=== PATIENT | female | born 1990 | race African-American/Black ===

== ENCOUNTER 2016-08-02 17:21 | Emergency (ER) | payer OTHER ==
[~2016-08-02] VITALS: Ht 157.5 cm; Wt 49.9 kg
[~2016-08-02 17:21] MED LIST: ALPR0.2566 PO; CYMBALTA30 MG OR; DILAUDID2 MG PO; DOXEPIN HCL50 MG OR; DOXEPIN HCL50 MG PO; ERYTHROMYCIN250 MG PO; FENT25DI TD; GABA100C2 PO; GABA300C2 PO; HYDR2TAB12 PO; HYDR5TAB9 PO; IBUPROFEN PM OR; INSU100I2 SC; INSU100P SC; IRON325 MG PO; LANTUS100 MG/ML SC; LYRICA50 MG OR; LYRICA75 MG OR; NOVOFINE32 GX6MM; NOVOFINE32 GX6MM EX; NOVOLOG SC; OMEP20CA PO; PRILOSEC20 MG OR; PROM25SU RE; PROM25TA52 PO; PROVERA5 MG PO; RANI150T78 PO; RELION; RELION EX; TRIM800T12 PO; VIMOVO1 TA1 OR; ZOFRAN8 MG OR; ZOFRAN8 MG PO; [UNRECOGNIZED DRUG - SUPPLY]; [UNRECOGNIZED DRUG - SUPPLY] EX
[2016-08-02 18:02] LABS: PLATELET COUNT 326 K/uL (152-353)
[2016-08-02 18:13] LABS: POTASSIUM 3.6 mmol/L (3.6-5.2); SODIUM 130 mmol/L (136-145)
[2016-08-02] MEDS ORDERED: PHENERGAN25 MG PR (18:58)
[2016-08-02] MEDS ORDERED: HYDR2TAB12 PO (18:58)
[2016-08-02 19:10] VITALS: BP 1220/81; TEMP 98.3
== END 2016-08-02 19:10 | disposition home or self-care (01) ==
LOC: ED 17:21
DX: R10.84 Generalized abdominal pain (principal); R11.2 Nausea with vomiting, unspecified
CPT/HCPCS: 80048; 85027; 96374; 96375; 99284; J1170; J1642; J2550

== ENCOUNTER 2016-08-12 16:16 | Emergency (ER) | payer OTHER ==
[~2016-08-12] VITALS: Ht 154.9 cm; Wt 50.8 kg
[~2016-08-12 16:16] MED LIST changes: +PHENERGAN25 MG PR
[2016-08-12 16:49] LABS: PLATELET COUNT 338 K/uL (152-353)
[2016-08-12 16:58] LABS: POTASSIUM 3.7 mmol/L (3.6-5.2); SODIUM 134 mmol/L (136-145)
[2016-08-12 21:36] VITALS: BP 151/91; TEMP 98.1
== END 2016-08-12 21:00 | disposition home or self-care (01) ==
LOC: ED 16:16
PROVIDERS: Emergency Medicine
DX: E10.43 Type 1 diabetes mellitus with diabetic autonomic (poly)neuropathy (principal); K31.84 Gastroparesis; Z79.4 Long term (current) use of insulin; R11.2 Nausea with vomiting, unspecified; R10.84 Generalized abdominal pain
CPT/HCPCS: 36415; 80053; 85027; 96365; 96375; 99284; J1170; J1200; J2405; J2550

== ENCOUNTER 2016-08-12 21:04 | Outpatient (CLI) | payer OTHER | END 2016-08-12 22:14 | disposition short-term general hospital (02) | LOC: AMB 21:04 | DX: E10.43 Type 1 diabetes mellitus with diabetic autonomic (poly)neuropathy (principal); K31.84 Gastroparesis; Z79.4 Long term (current) use of insulin; R11.2 Nausea with vomiting, unspecified; R10.84 Generalized abdominal pain | CPT/HCPCS: A0425; A0427 ==

== ENCOUNTER 2016-10-27 13:02 | Outpatient (CLI) | payer BC, OTHER ==
[2016-10-27 13:38] LABS: PLATELET COUNT 320 K/uL (152-353)
[2016-10-27 13:43] LABS: POTASSIUM 4.2 mmol/L (3.6-5.2); SODIUM 136 mmol/L (136-145)
== END 2016-10-27 19:15 | disposition home or self-care (01) ==
LOC: LABW 13:02
PROVIDERS: Internal Medicine Endocrinology, Diabetes & Metabolism
DX: E11.65 Type 2 diabetes mellitus with hyperglycemia (principal); E78.4 Other hyperlipidemia; I10 Essential (primary) hypertension
CPT/HCPCS: 36415; 80053; 80061; 82043; 82570; 85027

== ENCOUNTER 2016-11-08 11:13 | Emergency (ER) | payer BC, OTHER ==
[~2016-11-08] VITALS: Ht 157.5 cm; Wt 52.2 kg
[2016-11-08 11:25] VITALS: TEMP 98.8
[2016-11-08 12:11] LABS: PLATELET COUNT 282 K/uL (152-353)
[2016-11-08 12:16] LABS: POTASSIUM 3.6 mmol/L (3.6-5.2); SODIUM 136 mmol/L (136-145)
[2016-11-08 13:17] VITALS: BP 143/95
== END 2016-11-08 13:18 | disposition home or self-care (01) ==
LOC: ED 11:13
DX: E11.43 Type 2 diabetes mellitus with diabetic autonomic (poly)neuropathy (principal); K31.84 Gastroparesis; R10.84 Generalized abdominal pain; R11.2 Nausea with vomiting, unspecified
CPT/HCPCS: 80053; 85027; 96360; 96375; 96376; 99284; J1642; J2175; J2405; J2550; J3490

== ENCOUNTER 2016-11-10 18:35 | Inpatient (IN) | payer BC, OTHER ==
[~2016-11-10] VITALS: Ht 157.5 cm; Wt 52.2 kg
[2016-11-10 18:51] VITALS: BP 134/96; TEMP 99.3
[2016-11-10 19:29] LABS: PLATELET COUNT 280 K/uL (152-353)
[2016-11-10 19:32] LABS: POTASSIUM 2.8 mmol/L (3.6-5.2); SODIUM 136 mmol/L (136-145)
[2016-11-11] VITALS (7 sets, daily range): BP systolic 121–157; BP diastolic 75–95; TEMP 98.3–99; Ht 157.5 cm; Wt 52.2 kg
--- NOTE | 2016-11-11 08:31 | NUR ---
11/10/2016 AT 2245NORMAL SALINE AT 100ML/HR, SSI WITH REGULAR INSULIN PER PROTOCOL SQ PRN Q 4 HOURS, MAY USE BLOOD FROM ER FOR MAGNESIUM AND PHOSPHORUS. T.O. R&V DR. SHAW/NIA SUAREZ RN.
--- NOTE | 2016-11-11 08:47 | NUR ---
11/11/[address] COLIN NOTIFIED MAG LEVEL OF 1.5. NEW ORDER: MAGNESIUM 3G/100ML IV TO INFUSE OVER 3 HOURS, RECHECK MAG LEVEL 2 HOURS AFTER INFUSION IS COMPLETED. T/O/ R&V. DR. SHAW/NIA SUAREZ RN.
--- NOTE | 2016-11-11 08:51 | NUR ---
11/11/16 AT 0630NOTE PT HAS C/O NAUSEA DURING SHIFT BUT NO VOMITTING NOTED SINCE ADMIT.
--- NOTE | 2016-11-11 09:57 | NUR ---
0917 PATIENT COMPLAINED OF SHARP UPPER ABDOMINAL PAIN. PAIN SCALE IS 8/10. [place] LEE NOTIFIED AND STATED SHE WOULD NOTIFY DR. ZIEGLER.
[2016-11-11 11:01] LABS: PLATELET COUNT 257 K/uL (152-353)
[2016-11-11 11:26] LABS: POTASSIUM 3.8 mmol/L (3.6-5.2); SODIUM 129 mmol/L (136-145)
[2016-11-11] MEDS ORDERED: PROTONIX20 MG PO (15:08)
[2016-11-11] MEDS ORDERED: INSU100I2 SC (15:33)
[2016-11-11] MEDS ORDERED: INSU100P SC (15:34)
[2016-11-12 00:28] VITALS: BP 146/98; TEMP 99
[2016-11-12 04:00] VITALS: BP 149/97; TEMP 98.5
[2016-11-12 06:44] LABS: PLATELET COUNT 253 K/uL (152-353)
[2016-11-12 06:58] LABS: POTASSIUM 2.7 mmol/L (3.6-5.2); SODIUM 136 mmol/L (136-145)
--- NOTE | 2016-11-12 07:37 | NUR ---
BS 47 AT THIS TIME. JUICE PROVIDED. PT ALERT AND ORIENTED. NAD NOTED. PT STATES SHE CAN JUST TELL HER BS IS LOW BUT FEELS "OK" WILL RECHECK BS AND NOTIFIED MARCELINO MORALES TO NOTIFY DR ZIEGLER.
[2016-11-12 08:00] VITALS: BP 113/76; TEMP 97.7
--- NOTE | 2016-11-12 08:41 | NUR ---
bs rechecked 77 encourged to try and eat.
[2016-11-12 12:00] VITALS: BP 112/70; TEMP 97.7
--- NOTE | 2016-11-12 15:20 | NUR ---
DC INSTRUCTIONS GIVEN TO PT. PT VERBALIZED UNDERSTANDING. APPT WITH DR ARGUETA EXPLAINED TO PT AND PT VERBALIZED UNDERSTANDING. PORT DC'D AFTER FLUSHING WITH HEPARIN. PT TOLERATED WELL. NAD NOTED. PT AWAITING RIDE.
--- NOTE | 2016-11-12 15:25 | NUR ---
PT LEFT VIA WC WITH TECH. SEO NOTED
== END 2016-11-12 15:25 | disposition home or self-care (01) | DRG 74 ==
LOC: ED 18:35 → MED/SURG 19:45
PROVIDERS: Emergency Medicine
DX: E10.43 Type 1 diabetes mellitus with diabetic autonomic (poly)neuropathy (principal); K31.84 Gastroparesis; Z79.4 Long term (current) use of insulin; E86.0 Dehydration; R11.2 Nausea with vomiting, unspecified; R10.84 Generalized abdominal pain; E11.43 Type 2 diabetes mellitus with diabetic autonomic (poly)neuropathy
CPT/HCPCS: 36591; 80053; 81000; 82150; 82948; 83036; 83690; 83735; 84100; 85027; 93005; 94760; 96360; 96361; 96365; 96366; 96367; 96372; 96374; 96375; 96376; 99284; J0500; J1170; J1642; J1650; J1815; J2060; J2175; J2405; J2550; J3475; J3490

== ENCOUNTER 2016-12-22 04:28 | Emergency (ER) | payer BC, OTHER ==
[~2016-12-22] VITALS: Ht 157.5 cm; Wt 49.9 kg
[~2016-12-22 04:28] MED LIST changes: +PROTONIX20 MG PO
[2016-12-22 04:55] LABS: PLATELET COUNT 331 K/uL (152-353)
[2016-12-22 05:08] LABS: SODIUM 134 mmol/L (136-145)
[2016-12-22 06:27] VITALS: BP 148/97; TEMP 99.8
== END 2016-12-22 06:33 | disposition home or self-care (01) ==
LOC: ED 04:28
DX: E11.43 Type 2 diabetes mellitus with diabetic autonomic (poly)neuropathy (principal); K31.84 Gastroparesis
CPT/HCPCS: 36591; 80053; 80307; 81025; 82150; 83036; 83690; 85027; 96360; 96361; 96374; 99284; G0479; J1642; J2550

== ENCOUNTER 2017-09-13 08:54 | Outpatient (CLI) | payer BC, OTHER ==
[2017-09-13 09:44] LABS: POTASSIUM 4.1 mmol/L (3.6-5.2)
== END 2017-09-13 19:18 | disposition home or self-care (01) ==
LOC: LABW 08:54
PROVIDERS: Internal Medicine Endocrinology, Diabetes & Metabolism
DX: E10.65 Type 1 diabetes mellitus with hyperglycemia (principal); E78.4 Other hyperlipidemia
CPT/HCPCS: 36415; 80053; 80061; 82043; 82570

== ENCOUNTER 2017-10-16 22:31 | Emergency (ER) | payer BC, OTHER ==
[~2017-10-16] VITALS: Ht 154.9 cm; Wt 59.0 kg
[2017-10-16] MEDS ORDERED: ONDA4TAB3 PO (23:06)
[2017-10-16] MEDS ORDERED: PROM25TA52 PO (23:06)
[2017-10-16] MEDS ORDERED: PERCOCET1 TA3 PO (23:07)
[2017-10-16 23:36] LABS: PLATELET COUNT 328 K/uL (152-353)
[2017-10-16 23:44] LABS: POTASSIUM 3.9 mmol/L (3.6-5.2)
[2017-10-17 00:50] VITALS: BP 148/100; TEMP 99.1
== END 2017-10-17 01:01 | disposition home or self-care (01) ==
LOC: ED 22:31
DX: E11.43 Type 2 diabetes mellitus with diabetic autonomic (poly)neuropathy (principal); K31.84 Gastroparesis
CPT/HCPCS: 36591; 80053; 82150; 83690; 85027; 96374; 96375; 96376; 99284; J1642; J1885; J2550

== ENCOUNTER 2018-06-28 15:33 | Inpatient (IN) | payer BC, OTHER ==
[~2018-06-28] VITALS: Ht 157.5 cm; Wt 65.3 kg
[~2018-06-28 15:33] MED LIST changes: +ONDA4TAB3 PO; +PERCOCET1 TA3 PO
[2018-06-28 16:38] VITALS: BP 142/81; TEMP 98.3; Ht 157.5 cm; Wt 65.3 kg
[2018-06-28 16:39] LABS: PLATELET COUNT 309 K/uL (152-353)
[2018-06-28 16:49] LABS: POTASSIUM 4.3 mmol/L (3.6-5.2)
--- NOTE | 2018-06-28 17:52 | NUR ---
1600 KAYLIN CATH ASSESSED TO LEFT CHEST WALL PER STERILE TECHNIQUE. PT TOLERATED WELL
[2018-06-28 20:25] VITALS: BP 122/72; TEMP 98.3
--- NOTE | 2018-06-28 23:10 | NUR ---
PT C/O "SHARP" CONSTANT PAIN TO RUQ AND LUQ THAT SHE RATES A "7". GAVE MORPHINE 2MG IVP PRN AND ALSO GAVE PHENERGAN 25MG IV(IN 50ML NS IVPB) PRN FOR NAUSEA. NO ACUTE DISTRESS NOTED, PORT INTACT TO L UPPER CHEST WITH NS INFUSING AT 125ML/HR, DENIES ANY OTHER NEEDS AT THIS TIME. RAILS UP X3, BED IN LOW POSITION, ENCOUAGED TO CALL NEEDED.
--- NOTE | 2018-06-28 23:50 | NUR ---
PT RESTING WITH EYES CLOSED, NO S/S OF PAIN OR DISTRESS NOTED, PORT INTACT TO L UPPER CHEST WITH NS INFUSING AT 125ML/HR, RESP RATE NONLABORED/NORMAL, NO S/S OF REACTIONS NOTED TO PRN MEDICATIONS, WILL MONITOR CLOSELY, RAILS UP X3, BED IN LOW POSITION.
[2018-06-29] VITALS: BP 98/63; TEMP 98.2
--- NOTE | 2018-06-29 02:18 | NUR ---
RESTING IN BED WITH EYES CLOSED, NO S/S OF PAIN OR DISTRESS NOTED, WILL MONITOR CLOSELY, RAILS UP, BED IN LOW POSITION.
[2018-06-29 04:00] VITALS: BP 102/66; TEMP 97.7
[2018-06-29 08:00] VITALS: BP 109/66; TEMP 99
[2018-06-29 12:00] VITALS: BP 135/57; TEMP 98.7
[2018-06-29 16:00] VITALS: BP 93/52; TEMP 98.9
[2018-06-29 20:00] VITALS: BP 123/75; TEMP 98.8
[2018-06-30] VITALS: BP 97/63; TEMP 98.6
[2018-06-30 04:00] VITALS: BP 124/82; TEMP 98.5
[2018-06-30 06:23] LABS: PLATELET COUNT 272 K/uL (152-353)
[2018-06-30 06:35] LABS: POTASSIUM 4.4 mmol/L (3.6-5.2)
[2018-06-30 08:09] VITALS: BP 119/78; TEMP 97.7
[2018-06-30 12:03] VITALS: BP 113/66; TEMP 98.2
[2018-06-30 16:10] VITALS: BP 127/76; TEMP 98
[2018-06-30 20:00] VITALS: BP 117/75; TEMP 98.4
[2018-07-01] VITALS: BP 133/91; TEMP 98.1
[2018-07-01 04:00] VITALS: BP 127/90; TEMP 98.8
[2018-07-01 08:05] VITALS: BP 111/61; TEMP 98.3
[2018-07-01 12:14] VITALS: BP 124/84; TEMP 97.9
[2018-07-01 16:05] VITALS: BP 142/90; TEMP 98.6
[2018-07-01 16:10] LABS: PLATELET COUNT 234 K/uL (152-353)
[2018-07-01 16:20] LABS: POTASSIUM 4.2 mmol/L (3.6-5.2)
--- NOTE | 2018-07-01 18:35 | NUR ---
PT GIVEN D/C INSTRUCTIONS. PT TO F/U WITH DR CAMPOS IN 2 WEEKS. PT INSTRUCTED TO FOLLOW A LOW FIBER DIET. PT GIVEN PRESCRIPTION FOR PHENERGAN 25MG, PERCOCET 10/325, PROTONIX 20 MG BID. PT VERBALIZES UNDERSTANDING. PT PORT-A-CATH ACCESSED D/C AND FLUSHED WITH 500 UNITS HEPARIN. PT HAS NO FURTHER QUESTIONS. PT D/C VIA W/C.
== END 2018-07-01 18:30 | disposition home or self-care (01) | DRG 641 ==
LOC: MED/SURG 15:33
PROVIDERS: ADMIT Family Medicine
PROC: 30233N1 Transfusion of Nonautologous Red Blood Cells into Peripheral Vein, Percutaneous Approach (ICD-10-PCS; principal; 2018-06-30)
PROC: 30233N1 Transfusion of Nonautologous Red Blood Cells into Peripheral Vein, Percutaneous Approach (ICD-10-PCS; 2018-07-01)
DX: E86.0 Dehydration (principal); E10.43 Type 1 diabetes mellitus with diabetic autonomic (poly)neuropathy; K31.84 Gastroparesis; Z79.4 Long term (current) use of insulin; R10.84 Generalized abdominal pain; K21.9 Gastro-esophageal reflux disease without esophagitis; D64.89 Other specified anemias
CPT/HCPCS: 80053; 81000; 81025; 83036; 85027; 86850; 86900; 86901; 86922; 96365; 96366; 96374; 96375; J1642; J1815; J2270; J2550; J3490; P9016

== ENCOUNTER 2018-07-25 08:49 | Emergency (ER) | payer BC, OTHER ==
[~2018-07-25] VITALS: Ht 154.9 cm; Wt 59.0 kg
[2018-07-25 09:42] LABS: PLATELET COUNT 360 K/uL (152-353)
[2018-07-25 09:47] LABS: POTASSIUM 4.2 mmol/L (3.6-5.2)
[2018-07-25 11:45] VITALS: BP 164/100; TEMP 98
== END 2018-07-25 11:45 | disposition home or self-care (01) ==
LOC: ED 08:49
DX: R91.1 Solitary pulmonary nodule (principal)
CPT/HCPCS: 80053; 80307; 81000; 85007; 85027; 99283

== ENCOUNTER 2018-08-08 12:38 | Outpatient (CLI) | payer BC, OTHER ==
[2018-08-08 13:10] LABS: POTASSIUM 3.8 mmol/L (3.6-5.2)
== END 2018-08-08 19:17 | disposition home or self-care (01) ==
LOC: LAB 12:38
PROVIDERS: Hospitalist
DX: B95.62 Methicillin resistant Staphylococcus aureus infection as the cause of diseases classified elsewhere (principal)
CPT/HCPCS: 80053; 80202

== ENCOUNTER 2018-08-11 11:07 | Outpatient (CLI) | payer BC, OTHER ==
[2018-08-11 12:17] LABS: POTASSIUM 4.3 mmol/L (3.6-5.2)
== END 2018-08-11 23:30 | disposition home or self-care (01) ==
LOC: LAB 11:07
PROVIDERS: Hospitalist
DX: B95.62 Methicillin resistant Staphylococcus aureus infection as the cause of diseases classified elsewhere (principal)
CPT/HCPCS: 80053; 80202

== ENCOUNTER 2018-08-15 17:19 | Outpatient (CLI) | payer BC, OTHER ==
[2018-08-15 17:53] LABS: POTASSIUM 4.1 mmol/L (3.6-5.2)
== END 2018-08-15 21:01 | disposition home or self-care (01) ==
LOC: LAB 17:19
PROVIDERS: Hospitalist
DX: B95.62 Methicillin resistant Staphylococcus aureus infection as the cause of diseases classified elsewhere (principal)
CPT/HCPCS: 80053; 80202

== ENCOUNTER 2018-08-17 14:19 | Outpatient (CLI) | payer BC, OTHER ==
[2018-08-17 14:49] LABS: POTASSIUM 3.7 mmol/L (3.6-5.2)
== END 2018-08-17 19:25 | disposition home or self-care (01) ==
LOC: LAB 14:19
PROVIDERS: Family Medicine
DX: B95.62 Methicillin resistant Staphylococcus aureus infection as the cause of diseases classified elsewhere (principal)
CPT/HCPCS: 80053; 80202

== ENCOUNTER 2018-10-10 16:33 | Inpatient (IN) | payer BC, OTHER ==
[~2018-10-10] VITALS: Ht 157.5 cm; Wt 63.2 kg
[2018-10-10 17:24] VITALS: BP 154/89; TEMP 98.4; Ht 157.5 cm; Wt 63.2 kg
[2018-10-10 17:26] LABS: PLATELET COUNT 397 K/uL (152-353)
[2018-10-10 20:00] VITALS: BP 142/93; TEMP 98.9
[2018-10-11] VITALS (12 sets, daily range): BP systolic 98–156; BP diastolic 52–93; TEMP 97.6–99
[2018-10-11 08:25] LABS: PLATELET COUNT 271 K/uL (152-353)
[2018-10-11 08:34] LABS: POTASSIUM 4.3 mmol/L (3.6-5.2)
[2018-10-12] VITALS (24 sets, daily range): BP systolic 104–153; BP diastolic 50–89; TEMP 98.1–98.9
[2018-10-12 06:17] LABS: PLATELET COUNT 261 K/uL (152-353)
[2018-10-12 06:33] LABS: POTASSIUM 3.4 mmol/L (3.6-5.2)
[2018-10-13] VITALS (17 sets, daily range): BP systolic 95–132; BP diastolic 57–80; TEMP 98.1–99.4
[2018-10-13 10:44] LABS: PLATELET COUNT 221 K/uL (152-353)
[2018-10-13 10:58] LABS: POTASSIUM 3.5 mmol/L (3.6-5.2)
[2018-10-14] VITALS: BP 145/95; TEMP 99.7
[2018-10-14 04:00] VITALS: BP 135/70; TEMP 99.1
[2018-10-14 06:29] LABS: PLATELET COUNT 218 K/uL (152-353)
[2018-10-14 06:33] LABS: POTASSIUM 4.2 mmol/L (3.6-5.2)
[2018-10-14 08:00] VITALS: BP 156/99; TEMP 98.1
[2018-10-14 12:00] VITALS: BP 128/74; TEMP 98
[2018-10-14] MEDS ORDERED: PROTONIX20 MG PO (15:30)
[2018-10-14] MEDS ORDERED: NOVOLOG FL100 UNIT/M SC (15:37)
[2018-10-14 16:00] VITALS: BP 128/89; TEMP 98.4
== END 2018-10-14 16:20 | disposition home or self-care (01) | DRG 639 ==
LOC: MED/SURG 16:33 → ICU 16:33 → MED/SURG 16:34 → ICU 10-11 11:15 → MED/SURG 10-13 16:00
PROVIDERS: ADMIT Family Medicine
PROC: 02HV33Z Insertion of Infusion Device into Superior Vena Cava, Percutaneous Approach (ICD-10-PCS; 2018-10-11)
PROC: B548ZZA Ultrasonography of Superior Vena Cava, Guidance (ICD-10-PCS; 2018-10-11)
PROC: 30233N1 Transfusion of Nonautologous Red Blood Cells into Peripheral Vein, Percutaneous Approach (ICD-10-PCS; principal; 2018-10-13)
DX: E10.10 Type 1 diabetes mellitus with ketoacidosis without coma (principal); Z79.4 Long term (current) use of insulin; E86.0 Dehydration; K31.84 Gastroparesis; D64.89 Other specified anemias; K27.9 Peptic ulcer, site unspecified, unspecified as acute or chronic, without hemorrhage or perforation
CPT/HCPCS: 36600; 80053; 81000; 81002; 81025; 82271; 82805; 82947; 82948; 83036; 83735; 83986; 84100; 84439; 84443; 85027; 86850; 86900; 86901; 86922; 96361; 96365; 96367; 96375; C1751; J0696; J1170; J1650; J1815; J2001; J2270; J2405; J2550; J3480; J3490; J7060; P9016

== ENCOUNTER 2018-11-09 11:55 | Inpatient (IN) | payer BC, OTHER ==
[~2018-11-09] VITALS: Ht 154.9 cm; Wt 61.8 kg
[~2018-11-09 11:55] MED LIST changes: +NOVOLOG FL100 UNIT/M SC
[2018-11-09 13:19] LABS: PLATELET COUNT 323 K/uL (152-353)
[2018-11-09 13:31] LABS: POTASSIUM 4.5 mmol/L (3.6-5.2)
[2018-11-09 17:39] VITALS: BP 142/89; TEMP 97.6; Ht 154.9 cm; Wt 61.8 kg
[2018-11-09 20:18] VITALS: BP 116/75; TEMP 98.3
[2018-11-09 23:42] VITALS: BP 111/68; TEMP 98.7
[2018-11-10 04:00] VITALS: BP 115/72; TEMP 98.4
--- NOTE | 2018-11-10 05:42 | NUR ---
11/10/18 0535 RESTING IN BED QUEITLY WITH EYES CLOSED RESP EVEN NONLABORED.CC
[2018-11-10 08:00] VITALS: BP 113/71; TEMP 98
--- NOTE | 2018-11-10 10:45 | NUR ---
PT STATES THAT NEW FLUIDS (D5/NS) WAS BURNING. 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 IV SITE CLEAN DRY AND INTACT. NO REDNESS OR SWELLING NOTED. IV FLUIDS INFUSING WITHOUT ISSUE.
--- NOTE | 2018-11-10 11:15 | NUR ---
REASSESSED PT COMPLAINT OF FLUIDS BURNING. PT STATES THAT IT NO LONGER PHILLIPS. WILL CONTINUE TO MONITOR IV SITE AND FLUIDS.
[2018-11-10 12:00] VITALS: BP 137/86; TEMP 97.6
[2018-11-10 16:00] VITALS: BP 142/85; TEMP 97.6
[2018-11-10 20:00] VITALS: BP 133/81; TEMP 97.9
[2018-11-11] VITALS: BP 110/73; TEMP 98.2
[2018-11-11 03:51] VITALS: BP 107/56; TEMP 98
[2018-11-11 08:00] VITALS: BP 120/87; TEMP 97.5
[2018-11-11 12:00] VITALS: BP 130/85; TEMP 98.2
== END 2018-11-11 16:00 | disposition home or self-care (01) | DRG 74 ==
LOC: MED/SURG 11:55
PROVIDERS: ADMIT Family Medicine
DX: E10.43 Type 1 diabetes mellitus with diabetic autonomic (poly)neuropathy (principal); K31.84 Gastroparesis; K25.9 Gastric ulcer, unspecified as acute or chronic, without hemorrhage or perforation; E86.0 Dehydration; Z79.4 Long term (current) use of insulin; E10.65 Type 1 diabetes mellitus with hyperglycemia
CPT/HCPCS: 36415; 80053; 81000; 83735; 84100; 85027; J1170; J1815; J2270; J2405; J2550; J3490

== ENCOUNTER 2018-11-23 08:19 | Outpatient (CLI) | payer BC, OTHER | END 2018-11-23 19:06 | disposition home or self-care (01) | LOC: RESP 08:19 | DX: R06.02 Shortness of breath (principal) ==

== ENCOUNTER 2018-11-28 15:57 | Inpatient (IN) | payer BC, OTHER ==
[~2018-11-28] VITALS: Ht 157.5 cm; Wt 63.2 kg
[2018-11-28 18:01] VITALS: BP 179/103; TEMP 98.1; Ht 157.5 cm; Wt 63.2 kg
[2018-11-28 19:07] LABS: PLATELET COUNT 311 K/uL (152-353)
[2018-11-28 19:27] LABS: POTASSIUM 3.9 mmol/L (3.6-5.2)
[2018-11-28 20:00] VITALS: BP 129/82; TEMP 97.9
[2018-11-28 23:54] VITALS: BP 132/92; TEMP 98.3
[2018-11-29 04:00] VITALS: BP 142/89; TEMP 98.1
[2018-11-29 08:00] VITALS: BP 134/92; TEMP 97.8
[2018-11-29 13:33] VITALS: BP 145/77; TEMP 97.5
[2018-11-29 16:00] VITALS: BP 141/98; TEMP 97.5
[2018-11-29 20:00] VITALS: BP 115/75; TEMP 98.9
[2018-11-30] VITALS: BP 126/92; TEMP 98.7
[2018-11-30 04:00] VITALS: BP 166/108; TEMP 98.9
[2018-11-30 05:57] LABS: POTASSIUM 3.6 mmol/L (3.6-5.2)
[2018-11-30 06:11] LABS: PLATELET COUNT 249 K/uL (152-353)
[2018-11-30 08:00] VITALS: BP 143/80; TEMP 98.5
[2018-11-30 12:00] VITALS: BP 137/93; TEMP 98.1
[2018-11-30 16:00] VITALS: BP 126/85; TEMP 98.2
[2018-11-30 20:00] VITALS: BP 144/99; TEMP 98.4
[2018-12-01] VITALS: BP 130/84; TEMP 98.6
[2018-12-01 04:00] VITALS: BP 150/92; TEMP 98.1
[2018-12-01 08:00] VITALS: BP 153/93; TEMP 98.4
[2018-12-01 12:00] VITALS: BP 133/84; TEMP 98.2
[2018-12-01 16:00] VITALS: BP 125/91; TEMP 98.3
[2018-12-01 20:00] VITALS: BP 147/86; TEMP 98.9
[2018-12-02] VITALS: BP 129/79; TEMP 98
[2018-12-02 04:00] VITALS: BP 136/88; TEMP 97.8
[2018-12-02 05:45] LABS: PLATELET COUNT 261 K/uL (152-353)
[2018-12-02 06:02] LABS: POTASSIUM 3.9 mmol/L (3.6-5.2)
[2018-12-02 08:00] VITALS: BP 120/78; TEMP 97.6
[2018-12-02 12:00] VITALS: BP 130/78; TEMP 98.1
== END 2018-12-02 15:45 | disposition home or self-care (01) | DRG 641 ==
LOC: MED/SURG 15:57
PROVIDERS: ADMIT Family Medicine
DX: E86.0 Dehydration (principal); R11.2 Nausea with vomiting, unspecified; K21.9 Gastro-esophageal reflux disease without esophagitis; K25.9 Gastric ulcer, unspecified as acute or chronic, without hemorrhage or perforation; E10.43 Type 1 diabetes mellitus with diabetic autonomic (poly)neuropathy; E10.65 Type 1 diabetes mellitus with hyperglycemia; K31.84 Gastroparesis; Z79.4 Long term (current) use of insulin; R76.11 Nonspecific reaction to tuberculin skin test without active tuberculosis; I45.6 Pre-excitation syndrome
CPT/HCPCS: 36415; 80053; 81000; 83735; 84100; 85027; 86480; 87116; 87206; 94664; 94760; J1170; J1815; J2405; J3490

== ENCOUNTER 2019-01-02 10:15 | Inpatient (IN) | payer BC, OTHER ==
[~2019-01-02] VITALS: Ht 154.9 cm; Wt 69.4 kg
[2019-01-02 12:55] LABS: PLATELET COUNT 349 K/uL (152-353)
[2019-01-02 13:19] LABS: POTASSIUM 2.8 mmol/L (3.6-5.2)
[2019-01-02 14:35] VITALS: BP 138/80; TEMP 98.1; Ht 154.9 cm; Wt 69.4 kg
[2019-01-02 17:00] VITALS: BP 123/86; TEMP 97.7
[2019-01-02] MEDS ORDERED: NOVOLOG FL100 UNIT/M SC (17:05)
[2019-01-02] MEDS ORDERED: CARAFATE1 GM PO (17:06)
[2019-01-02] MEDS ORDERED: INSU100I2 SC (17:06)
[2019-01-02 20:00] VITALS: BP 109/77; TEMP 97.4
--- NOTE | 2019-01-02 23:21 | NUR ---
01/02/19 2300 BLOOD SUGAR RECHECKED 179.PT SAID HER PAIN IS RELEIVED NO VOMITING NOTED.CC
[2019-01-02 23:52] VITALS: BP 108/74; TEMP 98
[2019-01-03 04:00] VITALS: BP 117/90; TEMP 97.6
--- NOTE | 2019-01-03 06:34 | NUR ---
01/03/19 0630 PT NAUSEATED HAVING SOME PAIN VOMITED SMALL AMOUNT CLEAR LIQUID APPPROX 30CC.PT STATES THAT SHE FELT A LITTLE TIGHT AROUND HER CENTRAL LINE FLUIDS TURNED DOWN FOR A LITTLE WHILE TO OBSERVE FLUSHES WELL.
[2019-01-03 08:00] VITALS: BP 132/76; TEMP 96.2
[2019-01-03 12:00] VITALS: BP 103/96; TEMP 97.4
[2019-01-03 14:31] LABS: PLATELET COUNT 261 K/uL (152-353)
[2019-01-03 14:41] LABS: POTASSIUM 3.2 mmol/L (3.6-5.2)
--- NOTE | 2019-01-03 15:00 | NUR ---
UPON ASSESSMENT OF PATIENT AT 0730, RIGHT CHEST AND BREAST SWOLLEN AND HARD TO TOUCH, REPORT THIS MORNING FROM BASILIO MYERS, RN STATED THAT THE PAC HAD BEEN INFILTRATED DURING THE MORNING HOURS AND THE INFUSION RATE WAS SLOWED DOWN, NOW, THE CHEST WALL IS WORSE PER PATIENT. INFUSION WAS STOPPED, NEW IV SITE ESTABLISHED, AND PAC DE-ACCESSED, TIP INTACT. RT BREAST IS WARM TO TOUCH ON RT SIDE OF BREAST. @[address] CAMPOS WHILE MAKING ROUNDS, NEW ORDERS WRITTEN AND CARRIED OUT @1420 SPOKE WITH NURSE AT THE OFFICE OF DR CALHOUN, THE DR WHO PLACED THE PAC, PT TO MAKE A F/U APPT UPON DISCHARGE FROM [facility] TO ASSESS PAC.
[2019-01-03 16:00] VITALS: BP 132/86; TEMP 97.6
[2019-01-03 20:00] VITALS: BP 137/96; TEMP 98.5
[2019-01-04] VITALS: BP 112/71; TEMP 97.9
[2019-01-04 04:00] VITALS: BP 133/87; TEMP 98
[2019-01-04 08:00] VITALS: BP 119/83; TEMP 97.9
[2019-01-04 12:00] VITALS: BP 109/76; TEMP 98.2
[2019-01-04 16:00] VITALS: BP 124/85; TEMP 97.5
[2019-01-04 20:00] VITALS: BP 153/89; TEMP 98.4
[2019-01-05 00:16] VITALS: BP 137/85; TEMP 98.1
--- NOTE | 2019-01-05 01:44 | NUR ---
01/05/19 0130: PT'S PORT ACCESSED WITH 20G DIXON NEEDLE. GOOD BLOOD RETURN, FLUSHED EASILY. PT TOLERATED WELL. 24G IN LEFT 2ND FINGER REMOVED INTACT.
[2019-01-05 04:00] VITALS: BP 127/73; TEMP 98
[2019-01-05 05:17] LABS: PLATELET COUNT 225 K/uL (152-353)
[2019-01-05 08:00] VITALS: BP 116/68; TEMP 98.1
[2019-01-05 12:00] VITALS: BP 144/91; TEMP 97.3
[2019-01-05 16:00] VITALS: BP 122/83; TEMP 97.8
[2019-01-05 20:00] VITALS: BP 148/99; TEMP 98.2
--- NOTE | 2019-01-05 22:29 | NUR ---
PT GIVEN DILAUDID 4MG IVP PRN AND PHENERGAN 25MG IV PRN FOR C/O NAUSEA AND ABD PAIN THAT IS AN 8. WILL MONITOR CLOSELY.
--- NOTE | 2019-01-05 23:10 | NUR ---
PT AWAKE SITTING UP IN BED WATCHING TV WITH NO DISTRESS NOTED, STATES PAIN HAS NOW DECREASED TO A "3" SINCE PRN MEDICATION AND HER NAUSEA HAS DECREASED, WILL MONITOR CLOSELY, RAILS UP, BED IN LOW POSITION.
[2019-01-06] VITALS: BP 140/100; TEMP 98.4
[2019-01-06 01:10] VITALS: BP 149/89
--- NOTE | 2019-01-06 02:52 | NUR ---
PT C/O NAUSEA AND "SHARP, CONSTANT" PAIN ACROSS UPPER ABD THAT SHE RATES A "6" ON SCALE. GAVE DILAUDID 4MG AND ZOFRAN 8MG IVP PER PRN ORDERS. NO VOMITING NOTED, PORT INTACT TO R CHEST WITH NS WITH 20MEQ OF KCL INFUSING AT 150ML/HR, RESP RATE NONLABORED, ON ROOM AIR, WILL MONITOR CLOSELY, RAILS UP, BED IN LOW POSITION.
--- NOTE | 2019-01-06 03:34 | NUR ---
RESTING IN BED WITH EYES CLOSED, NO S/S OF PAIN OR N/V NOTED, WILL MONITOR CLOSELY.
[2019-01-06 04:00] VITALS: BP 126/93; TEMP 98.3
[2019-01-06 08:00] VITALS: BP 146/94; TEMP 98
--- NOTE | 2019-01-06 08:00 | NUR ---
PT RESTING IN BED. NO DISTRESS NOTED.
--- NOTE | 2019-01-06 10:00 | NUR ---
PT LYING IN BED WITH EYES CLOSED. NO DISTRESS NOTED.
--- NOTE | 2019-01-06 11:45 | NUR ---
PT COMPLAINS OF NAUSEA AND PAIN TO UPPER ABDOMEN/RIBS/CHEST - LEVEL 6. DILAUDID 4MG IV AND ZOFRAN 8MG IV GIVEN ORDERED. PT TOLERATED WELL. NO DISTRESS NOTED.
[2019-01-06 12:00] VITALS: BP 137/98; TEMP 98
--- NOTE | 2019-01-06 12:20 | NUR ---
PT STATES PAIN IS SOME BETTER BUT STILL THERE. NOW LEVEL 3-4. NO DISTRESS NOTED.
--- NOTE | 2019-01-06 12:50 | NUR ---
PT BLOOD GLUCOSE AT BEDSIDE 57. PT GIVEN THREE APPLE JUICE CUPS (360ML) AND LUNCH SERVED. PT STATES NOT HUNGRY BUT DRANK THE JUICE AND ONE BAKED CHICKEN LEG. PT INSTRUCTED TO CALL IF ASSISTANCE IS NEEDED.
--- NOTE | 2019-01-06 13:05 | NUR ---
PT COMPLAINING OF NAUSEA - GIVEN PHENERGAN 25MG IVPB MIXED WITH 50ML NS AND RUN OVER 15 MINS VIA IV PUMP. NO DISTRESS NOTED.
--- NOTE | 2019-01-06 13:35 | NUR ---
PT BEDSIDE BLOOD GLUCOSE 97. PT WITHOUT DISTRESS NOTED.
--- NOTE | 2019-01-06 13:50 | NUR ---
DR CAMPOS IN TO SEE PT.
--- NOTE | 2019-01-06 14:00 | NUR ---
PT RESTING IN BED. NO COMPLAINTS NOTED.
--- NOTE | 2019-01-06 15:50 | NUR ---
PT VERBALIZES UNDERSTANDING OF DC INSTRUCTIONS/RX'S. AWAITING PT SISTER TO ARRIVE BEFORE DC. NO DISTRESS NOTED. PT REQUESTED PAIN/NAUSEA MEDICATION. PAIN LEVEL 8 AT THIS TIME. PT GIVEN DILAUDID 4MG AND ZOFRAN 8MG IV GIVEN ORDERED. PT TOLERATED WELL.
--- NOTE | 2019-01-06 16:50 | NUR ---
PORT A CATH FLUSHED WITH HEPARIN LOCK SOLUTION AND DIXON NEEDLE REMOVED FROM PAC. STERILE 2X2 PLACED AND COVERED WITH TEGADERM. PT TOLERATED WELL. PT TO BE DISCHARGED HOME SO PT UP TO BATHROOM TO GET DRESSED.
--- NOTE | 2019-01-06 17:05 | NUR ---
PT VERBALIZED UNDERSTANDING OF DC INSTRUCTIONS AND RX'S. PT LEFT VIA WC WITH STAFF TO POV - PT SISTER DRIVING. PT PLACED IN PASSENGER SEAT WITH SEAT BELT APPLIED. NO DISTRESS NOTED.
== END 2019-01-06 17:05 | disposition home or self-care (01) | DRG 641 ==
LOC: MED/SURG 10:15
PROVIDERS: ADMIT Family Medicine
DX: E86.0 Dehydration (principal); T82.7XXA Infection and inflammatory reaction due to other cardiac and vascular devices, implants and grafts, initial encounter; R11.2 Nausea with vomiting, unspecified; K25.9 Gastric ulcer, unspecified as acute or chronic, without hemorrhage or perforation; E10.43 Type 1 diabetes mellitus with diabetic autonomic (poly)neuropathy; K31.84 Gastroparesis; I45.6 Pre-excitation syndrome; E87.6 Hypokalemia; D64.89 Other specified anemias; N61.0 Mastitis without abscess
CPT/HCPCS: 36415; 36416; 80053; 80307; 81000; 82947; 83735; 84100; 84132; 85027; 87040; J0696; J1170; J1642; J1815; J2405; J2550; J3490

== ENCOUNTER 2019-01-19 14:03 | Outpatient (CLI) | payer BC, OTHER ==
[~2019-01-19 14:03] MED LIST changes: +CARAFATE1 GM PO
== END 2019-01-19 23:49 | disposition home or self-care (01) ==
LOC: CT 14:03
DX: J98.4 Other disorders of lung (principal)

== ENCOUNTER 2019-02-06 15:22 | Inpatient (IN) | payer BC, OTHER ==
[~2019-02-06] VITALS: Ht 154.9 cm; Wt 65.6 kg
[2019-02-06 17:26] VITALS: BP 156/96; TEMP 99.9; Ht 154.9 cm; Wt 65.6 kg
[2019-02-06 17:29] LABS: PLATELET COUNT 306 K/uL (152-353)
[2019-02-06 18:02] LABS: POTASSIUM 3.2 mmol/L (3.6-5.2)
[2019-02-06 20:00] VITALS: BP 111/63; TEMP 97.1
[2019-02-07] VITALS: BP 137/84; TEMP 98.1
[2019-02-07 04:00] VITALS: BP 114/77; TEMP 97.3
[2019-02-07 05:33] LABS: PLATELET COUNT 251 K/uL (152-353)
[2019-02-07 06:02] LABS: POTASSIUM 3.1 mmol/L (3.6-5.2)
[2019-02-07 08:00] VITALS: BP 121/71; TEMP 98.1
[2019-02-07 20:59] VITALS: BP 137/90; TEMP 97.4
[2019-02-08] VITALS: BP 126/93; TEMP 97.7
[2019-02-08 05:22] VITALS: BP 150/75; TEMP 98.2
[2019-02-08 05:38] LABS: PLATELET COUNT 209 K/uL (152-353)
[2019-02-08 06:05] LABS: POTASSIUM 3.7 mmol/L (3.6-5.2)
[2019-02-08 13:39] LABS: POTASSIUM 4.4 mmol/L (3.6-5.2)
[2019-02-08 20:00] VITALS: BP 149/91; TEMP 97.5
[2019-02-09] VITALS: BP 150/94; TEMP 98.7
[2019-02-09 04:00] VITALS: BP 138/72; TEMP 97.8
[2019-02-09 08:00] VITALS: BP 123/82; TEMP 97.6
[2019-02-09 12:00] VITALS: BP 130/80; TEMP 98.3
== END 2019-02-09 19:09 | disposition home or self-care (01) | DRG 641 ==
LOC: MED/SURG 15:22
PROVIDERS: ADMIT Family Medicine
DX: E86.0 Dehydration (principal); R11.2 Nausea with vomiting, unspecified; K25.9 Gastric ulcer, unspecified as acute or chronic, without hemorrhage or perforation; I45.6 Pre-excitation syndrome; E10.69 Type 1 diabetes mellitus with other specified complication; Z79.4 Long term (current) use of insulin
CPT/HCPCS: 36415; 80053; 81000; 81002; 82550; 83735; 84443; 84484; 85027; 93005; J1170; J1642; J1815; J2405; J2550; J3490

== ENCOUNTER 2019-03-06 17:21 | Outpatient (CLI) | payer BC, OTHER | END 2019-03-06 23:59 | disposition home or self-care (01) | LOC: LABW 17:21 | PROVIDERS: Family Medicine | DX: E10.65 Type 1 diabetes mellitus with hyperglycemia (principal) | CPT/HCPCS: 36415; 80061 ==

== ENCOUNTER 2019-03-23 08:36 | Outpatient (CLI) | payer BC, OTHER | END 2019-03-23 21:48 | disposition home or self-care (01) | LOC: CT 08:36 | DX: R91.8 Other nonspecific abnormal finding of lung field (principal) ==

== ENCOUNTER 2019-05-24 13:15 | Inpatient (IN) | payer BC, OTHER ==
[~2019-05-24] VITALS: Ht 157.5 cm; Wt 68.7 kg
[2019-05-24 14:00] VITALS: BP 157/105; TEMP 98.6
[2019-05-24 14:12] LABS: PLATELET COUNT 319 K/uL (152-353)
[2019-05-24 14:41] LABS: POTASSIUM 3.2 mmol/L (3.6-5.2)
[2019-05-24 14:59] VITALS: BP 153/105; TEMP 98.6; Ht 157.5 cm; Wt 68.7 kg
[2019-05-24 16:00] VITALS: BP 105/66; TEMP 98.2
[2019-05-24 20:00] VITALS: BP 112/74; TEMP 98.3
[2019-05-25] VITALS: BP 113/77; TEMP 97.7
[2019-05-25 04:00] VITALS: BP 119/79; TEMP 97.2; TEMP 97.4
[2019-05-25 08:00] VITALS: BP 121/76; TEMP 98.1
[2019-05-25 10:15] LABS: PLATELET COUNT 267 K/uL (152-353)
[2019-05-25 12:00] VITALS: BP 126/75; TEMP 97.4
[2019-05-25 16:00] VITALS: BP 122/78; TEMP 98.4
[2019-05-25 19:41] VITALS: BP 128/92; TEMP 98.3
[2019-05-26 04:25] VITALS: BP 111/65; TEMP 98.7
[2019-05-26 05:30] LABS: PLATELET COUNT 239 K/uL (152-353)
[2019-05-26 05:47] LABS: POTASSIUM 3.9 mmol/L (3.6-5.2)
[2019-05-26 08:00] VITALS: BP 115/59; TEMP 98.5
[2019-05-26 12:00] VITALS: BP 106/66; TEMP 98.3
[2019-05-26 16:00] VITALS: BP 115/80; TEMP 96.3
[2019-05-26 20:00] VITALS: BP 120/78; TEMP 98.2
[2019-05-27] VITALS: BP 133/88; TEMP 98.7
[2019-05-27 04:00] VITALS: BP 131/83; TEMP 98.1
[2019-05-27 05:16] LABS: PLATELET COUNT 263 K/uL (152-353)
[2019-05-27 05:37] LABS: POTASSIUM 3.7 mmol/L (3.6-5.2)
[2019-05-27 08:00] VITALS: BP 129/80; TEMP 97.7
[2019-05-27 12:00] VITALS: BP 140/90; TEMP 98.1
[2019-05-27 16:00] VITALS: BP 155/98; TEMP 98.8
[2019-05-27 20:00] VITALS: BP 142/93; TEMP 98.9
[2019-05-28] VITALS: BP 143/85; TEMP 98.9
[2019-05-28 04:00] VITALS: BP 159/97; TEMP 98.3
[2019-05-28 05:54] LABS: POTASSIUM 4.2 mmol/L (3.6-5.2)
[2019-05-28 08:00] VITALS: BP 148/94; TEMP 98.3
[2019-05-28 12:00] VITALS: BP 139/7; TEMP 98.3
== END 2019-05-28 15:30 | disposition home or self-care (01) | DRG 74 ==
LOC: MED/SURG 13:15
PROVIDERS: Internal Medicine; ADMIT Family Medicine
DX: E10.43 Type 1 diabetes mellitus with diabetic autonomic (poly)neuropathy (principal); N39.0 Urinary tract infection, site not specified; K31.84 Gastroparesis; E10.65 Type 1 diabetes mellitus with hyperglycemia; E86.0 Dehydration; K25.9 Gastric ulcer, unspecified as acute or chronic, without hemorrhage or perforation; I45.6 Pre-excitation syndrome; B96.20 Unspecified Escherichia coli [E. coli] as the cause of diseases classified elsewhere
CPT/HCPCS: 36415; 36591; 80048; 80053; 81000; 81002; 83735; 84100; 84443; 85027; J0696; J1170; J1642; J1650; J1815; J1885; J2405; J2550; J3490

== ENCOUNTER 2019-07-27 11:38 | Inpatient (IN) | payer BC, OTHER ==
[~2019-07-27] VITALS: Ht 157.5 cm; Wt 69.5 kg
[2019-07-27 12:53] LABS: PLATELET COUNT 321 K/uL (152-353)
[2019-07-27 13:01] LABS: POTASSIUM 4.2 mmol/L (3.6-5.2)
[2019-07-27 14:29] VITALS: BP 114/81; TEMP 97.8; Ht 157.5 cm; Wt 69.5 kg
[2019-07-27 16:00] VITALS: BP 157/81; TEMP 97.8
[2019-07-27 20:00] VITALS: BP 161/92; TEMP 97.8
[2019-07-28] VITALS (7 sets, daily range): BP systolic 130–156; BP diastolic 57–96; TEMP 98–99
[2019-07-28] MEDS ORDERED: INSU100P SC (17:42)
[2019-07-28] MEDS ORDERED: ALPR0.2566 PO (17:43)
[2019-07-28] MEDS ORDERED: AMIT25TA22 PO (17:44)
[2019-07-28] MEDS ORDERED: PANTOPRAZOLE 40MG TA PO (17:45)
[2019-07-28] MEDS ORDERED: PERCOCET1 TA3 PO (17:46)
[2019-07-28 18:14] LABS: PLATELET COUNT 311 K/uL (152-353)
[2019-07-29 03:58] VITALS: BP 150/94; TEMP 98.6
[2019-07-29 08:00] VITALS: BP 132/93; TEMP 97.6
[2019-07-29 12:00] VITALS: BP 147/71; TEMP 98.6
[2019-07-29 16:00] VITALS: BP 123/101; TEMP 98.9
[2019-07-29 19:51] VITALS: BP 176/97; TEMP 99.4
[2019-07-29 23:55] VITALS: BP 139/96; TEMP 98.3
[2019-07-30 03:57] VITALS: BP 128/78; TEMP 98.6
[2019-07-30 04:08] LABS: PLATELET COUNT 242 K/uL (152-353)
[2019-07-30 04:21] LABS: POTASSIUM 3.7 mmol/L (3.6-5.2)
[2019-07-30 08:00] VITALS: BP 158/90; TEMP 98.4
[2019-07-30 12:00] VITALS: BP 126/77; TEMP 98.3
[2019-07-30 16:00] VITALS: BP 162/97; TEMP 99.3
[2019-07-30 20:22] VITALS: BP 147/92; TEMP 99
[2019-07-31] VITALS: BP 156/84; TEMP 99.5
[2019-07-31 04:00] VITALS: BP 141/94; TEMP 98.3
[2019-07-31 05:07] LABS: PLATELET COUNT 261 K/uL (152-353)
[2019-07-31 05:45] LABS: POTASSIUM 3.3 mmol/L (3.6-5.2)
[2019-07-31 08:13] VITALS: BP 140/90; TEMP 97.9
[2019-07-31 12:06] VITALS: BP 136/85; TEMP 98
[2019-07-31 16:02] VITALS: BP 149/88; TEMP 99.4
[2019-07-31 20:00] VITALS: BP 148/97; TEMP 98
[2019-08-01] VITALS: BP 136/87; TEMP 98.4
[2019-08-01 04:00] VITALS: BP 171/94; TEMP 98.6
[2019-08-01 08:00] VITALS: BP 125/67; TEMP 98.5
== END 2019-08-01 11:20 | disposition home or self-care (01) | DRG 74 ==
LOC: MED/SURG 11:38
PROVIDERS: ADMIT Family Medicine
DX: E10.43 Type 1 diabetes mellitus with diabetic autonomic (poly)neuropathy (principal); E10.65 Type 1 diabetes mellitus with hyperglycemia; K31.84 Gastroparesis; Z79.4 Long term (current) use of insulin; E86.0 Dehydration; K25.9 Gastric ulcer, unspecified as acute or chronic, without hemorrhage or perforation; E87.8 Other disorders of electrolyte and fluid balance, not elsewhere classified; E83.42 Hypomagnesemia; D64.89 Other specified anemias; I45.6 Pre-excitation syndrome
CPT/HCPCS: 80053; 81000; 81002; 82271; 82947; 83735; 83986; 84100; 85027; 87040; J1170; J1450; J1642; J1650; J1815; J1956; J2405; J2550; J3475; J3490

== ENCOUNTER 2019-08-10 08:08 | Outpatient (CLI) | payer BC, OTHER ==
[~2019-08-10 08:08] MED LIST changes: +AMIT25TA22 PO; +PANTOPRAZOLE 40MG TA PO
== END 2019-08-10 22:36 | disposition home or self-care (01) ==
LOC: MAMMO 08:08
PROVIDERS: Family Medicine
DX: N64.4 Mastodynia (principal); Z30.9 Encounter for contraceptive management, unspecified; E10.65 Type 1 diabetes mellitus with hyperglycemia; Z68.29 Body mass index [BMI] 29.0-29.9, adult; E55.9 Vitamin D deficiency, unspecified
CPT/HCPCS: 36415; 80061; 82306; G0279

== ENCOUNTER 2019-11-16 15:37 | Outpatient (CLI) | payer BC, OTHER | END 2019-11-16 20:12 | disposition home or self-care (01) | LOC: LABW 15:37 | DX: Z30.9 Encounter for contraceptive management, unspecified (principal) | CPT/HCPCS: 81025 ==

== ENCOUNTER 2019-11-22 15:32 | Outpatient (CLI) | payer BC, OTHER | END 2019-11-22 22:24 | disposition home or self-care (01) | LOC: LABW 15:32 | DX: Z30.9 Encounter for contraceptive management, unspecified (principal) | CPT/HCPCS: 81025 ==

== ENCOUNTER 2020-04-15 15:42 | Outpatient (CLI) | payer BC, OTHER | END 2020-04-16 01:10 | disposition home or self-care (01) | LOC: LABW 15:42 | DX: E10.65 Type 1 diabetes mellitus with hyperglycemia (principal) | CPT/HCPCS: 36415; 83036 ==

== ENCOUNTER 2020-06-18 12:52 | Outpatient (CLI) | payer BC, OTHER | END 2020-06-18 20:00 | disposition home or self-care (01) | LOC: LAB 12:52 | PROVIDERS: ATTEND Family Medicine | DX: Z20.828 Contact with and (suspected) exposure to other viral communicable diseases (principal) | CPT/HCPCS: 87635; G2023; U0003 ==

== ENCOUNTER 2020-07-22 16:00 | Outpatient (CLI) | payer BC, OTHER ==
[2020-07-22 16:58] LABS: POTASSIUM 4.3 mmol/L (3.6-5.2)
== END 2020-07-22 20:52 | disposition home or self-care (01) ==
LOC: LABW 16:00
PROVIDERS: ATTEND Internal Medicine Endocrinology, Diabetes & Metabolism
DX: E10.65 Type 1 diabetes mellitus with hyperglycemia (principal); Z68.29 Body mass index [BMI] 29.0-29.9, adult; E78.5 Hyperlipidemia, unspecified; E55.9 Vitamin D deficiency, unspecified
CPT/HCPCS: 36415; 80053; 80061; 82043; 82306; 82570; 83036; 84439; 84443; 84481

== ENCOUNTER 2021-08-28 07:56 | Outpatient (CLI) | payer OTHER ==
[2021-08-28 08:29] LABS: PLATELET COUNT 287 K/uL (152-353)
[2021-08-28 08:45] LABS: POTASSIUM 3.6 mmol/L (3.6-5.2)
== END 2021-08-28 19:07 | disposition home or self-care (01) ==
LOC: LABW 07:56
PROVIDERS: ATTEND Family Medicine
DX: E11.65 Type 2 diabetes mellitus with hyperglycemia (principal); K21.9 Gastro-esophageal reflux disease without esophagitis
CPT/HCPCS: 36415; 80053; 80061; 81000; 83036; 83735; 84439; 84443; 85027

== ENCOUNTER 2021-09-09 18:39 | Outpatient (CLI) | payer OTHER | END 2021-09-09 19:08 | disposition home or self-care (01) | LOC: LABW 18:39 | PROVIDERS: ATTEND Family Medicine | DX: D64.9 Anemia, unspecified (principal) | CPT/HCPCS: 36415; 82728; 83540; 83550 ==

== ENCOUNTER 2022-08-20 21:43 | Inpatient (IN) | payer OTHER ==
[~2022-08-20] VITALS: Ht 154.9 cm; Wt 60.0 kg
[2022-08-20 21:46] VITALS: BP 110/79; TEMP 99.2
[2022-08-20 22:31] LABS: PLATELET COUNT 338 K/uL (152-353)
[2022-08-20 22:42] LABS: POTASSIUM 3.1 mmol/L (3.6-5.2)
[2022-08-20 23:00] VITALS: BP 127/88
[2022-08-21] VITALS (9 sets, daily range): BP systolic 102–152; BP diastolic 61–91; TEMP 97.6–98.6; Ht 154.9 cm; Wt 60.0 kg
[2022-08-21 07:25] LABS: PLATELET COUNT 262 K/uL (152-353)
[2022-08-21 07:40] LABS: POTASSIUM 3.8 mmol/L (3.6-5.2)
[2022-08-21] MEDS ORDERED: VITAMIN D50000 UNIT PO (10:33)
[2022-08-21] MEDS ORDERED: PERCOCET1 TA3 PO (10:34)
[2022-08-22] VITALS: BP 147/88; TEMP 98.4
[2022-08-22 04:00] VITALS: BP 112/76; TEMP 98.5
[2022-08-22 05:36] LABS: PLATELET COUNT 273 K/uL (152-353)
[2022-08-22 08:00] VITALS: BP 140/88; TEMP 98.2
[2022-08-22 09:13] LABS: POTASSIUM 4.5 mmol/L (3.6-5.2)
[2022-08-22 12:00] VITALS: BP 119/74; TEMP 98.2
[2022-08-22 16:00] VITALS: BP 146/96; TEMP 98.2
[2022-08-22 20:00] VITALS: BP 150/90; TEMP 98.8
[2022-08-23] VITALS: BP 127/76; TEMP 98
[2022-08-23 04:00] VITALS: BP 126/72; TEMP 97.9
[2022-08-23 05:51] LABS: PLATELET COUNT 320 K/uL (152-353)
[2022-08-23 05:53] LABS: POTASSIUM 3.9 mmol/L (3.6-5.2)
[2022-08-23 08:01] VITALS: BP 109/72; TEMP 98.5
[2022-08-23 12:00] VITALS: BP 117/70; TEMP 98.4
[2022-08-23 16:00] VITALS: BP 119/71; TEMP 98.3
[2022-08-23 20:00] VITALS: BP 133/82; TEMP 98.8
[2022-08-24] VITALS: BP 160/85; TEMP 98.7
[2022-08-24 04:00] VITALS: BP 99/66; TEMP 98.8
[2022-08-24 08:00] VITALS: BP 111/68; TEMP 98.2
[2022-08-24 09:16] LABS: PLATELET COUNT 234 K/uL (152-353)
[2022-08-24 12:00] VITALS: BP 136/73; TEMP 99
[2022-08-24] MEDS ORDERED: PROM25SU RE (15:14)
== END 2022-08-24 16:18 | disposition home or self-care (01) | DRG 392 ==
LOC: ED 21:43 → MED/SURG 08-21 01:30
PROVIDERS: ADMIT Emergency Medicine; ATTEND Internal Medicine
DX: K31.84 Gastroparesis (principal); N17.8 Other acute kidney failure; E87.6 Hypokalemia; R00.0 Tachycardia, unspecified; E10.43 Type 1 diabetes mellitus with diabetic autonomic (poly)neuropathy; E10.65 Type 1 diabetes mellitus with hyperglycemia; Z79.4 Long term (current) use of insulin; D72.828 Other elevated white blood cell count; R11.2 Nausea with vomiting, unspecified; R10.13 Epigastric pain; R82.4 Acetonuria
CPT/HCPCS: 36415; 36591; 36600; 80048; 80053; 81002; 81025; 82805; 85027; 87502; 87635; 93005; 96361; 96365; 96372; 96375; 96376; 99284; J1170; J1642; J1815; J2270; J2405; J2550; J3230; J3490; J7060; U0003